=== PATIENT | male | born 1960 | race Caucasian/White ===

== ENCOUNTER 2018-10-26 09:02 | Outpatient (CLI) | payer OTHER ==
[~2018-10-26 09:02] MED LIST: DICLOFENAC POTA50 MG PO; MEDROLPACK PO
== END 2018-10-26 09:09 | disposition home or self-care (01) ==
LOC: RAD 501 09:02
DX: M25.562 Pain in left knee (principal)

== ENCOUNTER 2019-01-28 21:45 | Emergency (ER) | payer OTHER ==
[~2019-01-28] VITALS: Ht 180.3 cm; Wt 104.3 kg
== END 2019-01-29 01:31 | disposition home or self-care (01) ==
LOC: ER 21:45
DX: J06.9 Acute upper respiratory infection, unspecified (principal)

== ENCOUNTER 2019-08-01 10:08 | Outpatient (CLI) | payer OTHER | END 2019-08-01 10:18 | disposition home or self-care (01) | LOC: LAB 10:08 | DX: Z12.11 Encounter for screening for malignant neoplasm of colon (principal); Z12.5 Encounter for screening for malignant neoplasm of prostate; Z13.6 Encounter for screening for cardiovascular disorders; Z00.00 Encounter for general adult medical examination without abnormal findings; E66.3 Overweight ==

== ENCOUNTER → 2019-08-02 08:29 | Outpatient (CLI) | payer OTHER | END | disposition home or self-care (01) | LOC: LAB 08:29 | DX: Z12.11 Encounter for screening for malignant neoplasm of colon (principal); Z12.5 Encounter for screening for malignant neoplasm of prostate; Z13.6 Encounter for screening for cardiovascular disorders; Z00.00 Encounter for general adult medical examination without abnormal findings; E66.3 Overweight ==

== ENCOUNTER 2020-08-27 14:18 | Emergency (ER) | payer OTHER ==
[~2020-08-27] VITALS: Ht 175.3 cm; Wt 108.9 kg
[2020-08-27] MEDS ORDERED: ZYRTEC10 M3 PO (16:04)
[2020-08-27] MEDS ORDERED: BENADRYL25 MG PO (16:04)
[2020-08-27] MEDS ORDERED: MEDROLPACK PO (16:04)
== END 2020-08-27 16:27 | disposition home or self-care (01) ==
LOC: ER 14:18
DX: R21 Rash and other nonspecific skin eruption (principal); Z03.818 Encounter for observation for suspected exposure to other biological agents ruled out

== ENCOUNTER 2024-06-06 10:13 | Emergency (ER) | payer OTHER ==
[~2024-06-06] VITALS: Ht 177.8 cm; Wt 106.6 kg
[~2024-06-06 10:13] MED LIST changes: +BENADRYL25 MG PO; +ZYRTEC10 M3 PO
[2024-06-06] MEDS ORDERED: KETOROLAC TROMETHAMINE 60 MG VIAL IM STA (12:56)
[2024-06-06] MEDS ORDERED: KETOROLAC TROMETHAMINE 60 MG VIAL IM ONE (13:06)
== END 2024-06-06 15:32 | disposition home or self-care (01) ==
LOC: ER 10:13
DX: S90.31XA Contusion of right foot, initial encounter (principal); W14.XXXA Fall from tree, initial encounter; Y93.89 Activity, other specified; Y92.832 Beach as the place of occurrence of the external cause; Y99.9 Unspecified external cause status